=== PATIENT | female | born 1975 | race Caucasian/White ===

== ENCOUNTER → 2017-06-25 | Day surgery (SDC) | payer BC ==
--- NOTE | 2017-06-24 15:12 | MH ---
cc: Marichuy Wright MD DATE OF ADMISSION: 06/25/2017 HISTORY OF PRESENT ILLNESS: The patient is a 42-year-old white female, G2, P2, who has had good [facility]OSPITAL [employer] care at our office, who had a vulvar lesion a few months back, some of which came back as a benign skin tag. 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 We had her come back for a followup visit and on exam, I felt that she did have some residual, probably dysplastic, tissue in the perineal area that I would recommend removing. She has kind of a raised whitened area, maybe about 6 o'clock in the posterior fourchette, and I recommended with the patient that we should remove that with a wide local excision, so that we can get good removal of tissue, clear margins, and hopefully take care of the whole problem, and she agrees to the procedure. No other complaints. PAST MEDICAL HISTORY: Really negative. PAST SURGICAL HISTORY: Negative. MEDICATIONS: None. ALLERGIES: BACTRIM. SOCIAL HISTORY: No tobacco, alcohol, or drug use. She lives with her family. FAMILY HISTORY: Noncontributory. GYNECOLOGIC HISTORY: No history of abnormal Paps. No history of STDs. OBSTETRICAL HISTORY: x 2. PHYSICAL EXAMINATION: VITAL SIGNS: Weight is 210, height 5 foot 7 inches, blood pressure 124/76, pulse of 70. BREASTS: Without masses, nodes, or discharge. CHEST: Clear to auscultation bilaterally. CARDIAC: Regular rate and rhythm without murmur, rub, or gallop. ABDOMEN: Soft, nontender, nondistended. No hepatosplenomegaly. No CVA tenderness. No hernias noted. PELVIC: In the posterior fourchette, really from about 4-7 o'clock, she has kind of a raised whitened area where I did the prior punch biopsy. No other lesions noted. Cervix without lesions. Uterus normal size. Adnexa without masses. 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 Plan will be for a wide local excision. Marichuy Wright MD CCD/SB , 02:37 PM , 03:11 PM
[~2017-06-25] VITALS: Ht 170.2 cm; Wt 98.2 kg
[~2017-06-25] MED LIST: BACITRACIN TOP OINT 15 GM TUBE ONE; BUPIVACAINE/EPINEPHRINE 0.5% PF 30 ML VIAL ONE; CHLORHEXIDINE GLUCONATE 2 % 1 PACK (2 CLOTHS) TOPICAL PRN; DO NOT ADM ANY ANTICOAGULANT DRUGS PRN; FUROSEMIDE 40 MG/4 ML VIAL IV PUSH ONE; KETOROLAC TROMETHAMINE 30 MG/ML (IVP) VIAL ONE; LACTATED RINGER'S 1000 ML IV PRN; METOCLOPRAMIDE HCL 10 MG/2 ML VIAL IV SCH; METOPROLOL TARTRATE 25 MG TAB PO PRN; ONDANSETRON INJ 8 MG in DEXTROSE 5% IN WATER INJ 50 ML IV PRN; PERCOC; POVIDONE IODINE 5% (ANTISEPSIS KIT) 4 APPLICATIONS EACH NARE PRN; PROPOFOL 200 MG/20 ML AMP IV ONE; Percocet; SODIUM CHLORID 0.9% 500 ML IV PRN; oxyCODONE/ACETAMINOPHEN 5 MG/325 MG TAB PO PRN
[2017-06-25 13:55] VITALS: BP 123/78; PULSE 75; RESP 20; TEMP 98.3; O2SAT 100
--- NOTE | 2017-06-26 07:49 | MP ---
cc: Marichuy Wright MD DATE OF OPERATION: 06/25/2017 PREOPERATIVE DIAGNOSIS: Vulvar intraepithelial neoplasia 2 (LILY 2). POSTOPERATIVE DIAGNOSIS: Vulvar intraepithelial neoplasia 2 (LILY 2). PROCEDURE PERFORMED: Wide local excision of LILY 2. OPERATING SURGEON: Marichuy Wright MD ANESTHESIA: General by face mask. FINDINGS IN SURGERY: Included a small amount of residual LILY 2 from an in office punch biopsy. BLOOD LOSS: Minimal. COMPLICATIONS: None. PROCEDURE IN DETAIL: After proper consents had been obtained, the patient was taken to the operating room where general by mask anesthesia was applied. She was then sterilely prepped and draped in the dorsal lithotomy position. At this time, inspection of the posterior fourchette revealed the LILY 2. I went ahead and excised it in kind of an inverse triangle shape which I removed everything very easily with good margins. I then achieved hemostasis of that area with Bovie cautery. I then closed the deeper tissue with a 3-0 Vicryl in interrupted [id number] sutures x 2. I then closed the skin with a vertical mattress suture of 3-0 Vicryl with excellent reapproximation. No tension on the tissue and she will have a good healing. Counts were correct and the patient was stable to the recovery room. MD MATT Alegre/DL , 07:29 AM , 07:48 AM
== END | disposition home or self-care (01) ==
LOC: HSDC 08:47
PROVIDERS: ATTEND Obstetrics & Gynecology
DX: N90.1 Moderate vulvar dysplasia (principal)
CPT/HCPCS: 00906; 56620; 84703; 88305; J1885; J3010; J7120